=== PATIENT | female | born 2000 | race Caucasian/White ===

== ENCOUNTER 2020-09-19 17:13 | Emergency (ER) | payer SELFPAY ==
[~2020-09-19] VITALS: Ht 142.2 cm; Wt 40.2 kg
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
[2020-09-19 17:53] LABS: HEMATOCRIT 35 % (35-52); HEMOGLOBIN 12.3 G/DL (11.5-16.0); MEAN CORPUSCULAR HEMOGLOBIN 32 PG (25-34); MEAN CORPUSCULAR HGB CONC 35 G/DL (32-36); MEAN CORPUSCULAR VOLUME 91 FL (80-99); PLATELET COUNT 276 10^3/uL (130-400); WHITE BLOOD COUNT 6.4 10^3/uL (4.3-11.0)
[2020-09-19 17:54] LABS: BASOPHILS # (AUTO) 0.1 10^3/uL (0.0-0.1); BASOPHILS % (AUTO) 1 % (0-10); EOSINOPHILS # (AUTO) 0.2 10^3/uL (0.0-0.3); EOSINOPHILS % (AUTO) 3 % (0-10); LYMPHOCYTES # (AUTO) 1.7 X 10^3 (1.0-4.0); LYMPHOCYTES % (AUTO) 26 % (12-44); MONOCYTES # (AUTO) 0.4 X 10^3 (0.0-1.0); MONOCYTES % (AUTO) 7 % (0-12); NEUTROPHILS # (AUTO) 4.1 X 10^3 (1.8-7.8); NEUTROPHILS % (AUTO) 64 % (42-75)
[2020-09-19 18:18] LABS: HCG,QUALITATIVE URINE NEGATIVE (NEGATIVE)
[2020-09-19 18:18] LABS: BUN/CREATININE RATIO 18; CALCIUM 8.8 MG/DL (8.5-10.1); CARBON DIOXIDE 23 MMOL/L (21-32); CHLORIDE 110 MMOL/L (98-107); CREATININE SERUM 0.62 MG/DL (0.60-1.30); GFR ESTIMATED > 60; GLUCOSE 85 MG/DL (70-105); POTASSIUM 3.9 MMOL/L (3.6-5.0); SODIUM 142 MMOL/L (135-145)
[2020-09-19 18:19] LABS: ACETAMINOPHEN < 10 UG/ML (10-30); ALANINE AMINOTRANSFERASE 7 U/L (0-55); ALBUMIN 4.2 GM/DL (3.2-4.5); ALKALINE PHOSPHATASE 64 U/L (40-136); BILIRUBIN,TOTAL 0.4 MG/DL (0.1-1.0); SALICYLATE < 0.3 MG/DL (5.0-20.0); TOTAL PROTEIN 6.5 GM/DL (6.4-8.2)
[2020-09-19 18:24] LABS: BILIRUBIN,URINE NEGATIVE (NEGATIVE); CLARITY,URINE SLT CLOUDY; COLOR,URINE YELLOW; GLUCOSE, URINE (UA) NEGATIVE (NEGATIVE); KETONES,URINE NEGATIVE (NEGATIVE); LEUKOCYTE ESTERASE ,URINE 2+ (NEGATIVE); NITRITE,URINE NEGATIVE (NEGATIVE); PH,URINE 8.5 (5-9); PROTEIN,URINE 1+ (NEGATIVE)
[2020-09-19 18:25] LABS: BACTERIA,URINE TRACE /HPF; RBC,URINE 0-2 /HPF
[2020-09-19 18:28] LABS: AMPHETAMINE SCREEN, URINE NEGATIVE (NEGATIVE); BARBITURATE SCREEN URINE NEGATIVE (NEGATIVE); BENZODIAZEPINES SCREEN URINE NEGATIVE (NEGATIVE); CANNABINOID SCREEN, URINE NEGATIVE (NEGATIVE); COCAINE SCREEN URINE NEGATIVE (NEGATIVE); METHADONE STAT NEGATIVE (NEGATIVE); METHAMPHETAMINE SCREEN URINE S NEGATIVE (NEGATIVE); OPIATE SCREEN URINE NEGATIVE (NEGATIVE); OXYCODONE STAT NEGATIVE (NEGATIVE); PROPOXYPHENE STAT NEGATIVE (NEGATIVE); TRICYCLIC ANTIDEPRESSANTS SCRE NEGATIVE (NEGATIVE)
[2020-09-19] MEDS ORDERED: Paroxetine (19:03)
[2020-09-20 08:30] VITALS: BP 116/72
== END 2020-09-20 08:45 | disposition short-term general hospital (02) ==
LOC: ER FS 17:16
DX: R45.851 Suicidal ideations (principal); Z20.822 Contact with and (suspected) exposure to COVID-19
CPT/HCPCS: 36415; 80053; 80306; 81000; 84703; 85025; 87088; 93005; 93041; 99284; G0480 ×3; U0002; 80320; 80329; 87635

== ENCOUNTER 2020-10-03 14:17 | Emergency (ER) | payer SELFPAY ==
[~2020-10-03] VITALS: Ht 145 cm; Wt 42.0 kg
[~2020-10-03 14:17] MED LIST: Paroxetine
[2020-10-03] MEDS ORDERED: NS IV 1000 ML 1,000 ML IV STA (14:43)
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
[2020-10-03 14:58] LABS: WHITE BLOOD COUNT 8.1 10^3/uL (4.3-11.0)
[2020-10-03 14:59] LABS: BASOPHILS % (AUTO) 0 % (0-10); EOSINOPHILS # (AUTO) 0.2 10^3/uL (0.0-0.3); EOSINOPHILS % (AUTO) 3 % (0-10); HEMATOCRIT 35 % (35-52); HEMOGLOBIN 12.4 G/DL (11.5-16.0); LYMPHOCYTES # (AUTO) 1.3 X 10^3 (1.0-4.0); LYMPHOCYTES % (AUTO) 16 % (12-44); MEAN CORPUSCULAR HEMOGLOBIN 32 PG (25-34); MEAN CORPUSCULAR HGB CONC 35 G/DL (32-36); MEAN CORPUSCULAR VOLUME 92 FL (80-99); MEAN PLATELET VOLUME 10.1 FL (7.4-10.4); MONOCYTES # (AUTO) 0.7 X 10^3 (0.0-1.0); MONOCYTES % (AUTO) 9 % (0-12); NEUTROPHILS # (AUTO) 5.8 X 10^3 (1.8-7.8); NEUTROPHILS % (AUTO) 72 % (42-75); PLATELET COUNT 227 10^3/uL (130-400)
[2020-10-03 15:05] LABS: BILIRUBIN,URINE NEGATIVE (NEGATIVE); CLARITY,URINE CLEAR; COLOR,URINE YELLOW; GLUCOSE, URINE (UA) NEGATIVE (NEGATIVE); KETONES,URINE NEGATIVE (NEGATIVE); LEUKOCYTE ESTERASE ,URINE TRACE (NEGATIVE); NITRITE,URINE NEGATIVE (NEGATIVE); PROTEIN,URINE 1+ (NEGATIVE)
[2020-10-03 15:06] LABS: BACTERIA,URINE FEW /HPF; RBC,URINE 0-2 /HPF
[2020-10-03 15:08] LABS: AMPHETAMINE SCREEN, URINE NEGATIVE (NEGATIVE); BARBITURATE SCREEN URINE NEGATIVE (NEGATIVE); BENZODIAZEPINES SCREEN URINE NEGATIVE (NEGATIVE); CANNABINOID SCREEN, URINE NEGATIVE (NEGATIVE); COCAINE SCREEN URINE NEGATIVE (NEGATIVE); METHADONE STAT NEGATIVE (NEGATIVE); METHAMPHETAMINE SCREEN URINE S NEGATIVE (NEGATIVE); OPIATE SCREEN URINE NEGATIVE (NEGATIVE); OXYCODONE STAT NEGATIVE (NEGATIVE); PROPOXYPHENE STAT NEGATIVE (NEGATIVE); TRICYCLIC ANTIDEPRESSANTS SCRE NEGATIVE (NEGATIVE)
[2020-10-03 15:17] LABS: ACETAMINOPHEN < 10 UG/ML (10-30); ALANINE AMINOTRANSFERASE 6 U/L (0-55); ALBUMIN 3.7 GM/DL (3.2-4.5); ALKALINE PHOSPHATASE 64 U/L (40-136); BILIRUBIN,TOTAL 0.2 MG/DL (0.1-1.0); BUN/CREATININE RATIO 17; CALCIUM 8.9 MG/DL (8.5-10.1); CARBON DIOXIDE 23 MMOL/L (21-32); CHLORIDE 108 MMOL/L (98-107); CREATININE SERUM 0.69 MG/DL (0.60-1.30); GFR ESTIMATED > 60; GLUCOSE 88 MG/DL (70-105); POTASSIUM 3.9 MMOL/L (3.6-5.0); SALICYLATE < 0.3 MG/DL (5.0-20.0); SODIUM 140 MMOL/L (135-145); TOTAL PROTEIN 6.3 GM/DL (6.4-8.2)
[2020-10-03 17:22] VITALS: BP 124/62
== END 2020-10-03 17:16 | disposition home or self-care (01) ==
LOC: EDUNIT# 14:17 → ER FS 14:19
DX: F41.9 Anxiety disorder, unspecified (principal); T43.222A Poisoning by selective serotonin reuptake inhibitors, intentional self-harm, initial encounter
CPT/HCPCS: 36415; 80053; 80306; 81000; 84703; 85025; 93005; 93041; 99284; G0480 ×3; 80320; 80329

== ENCOUNTER 2021-02-18 15:34 | Emergency (ER) | payer OTHER ==
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
--- OUTSIDE RECORDS SUMMARY | 2021-04-14 18:54 | XMS REPORT | Encounter Summary ---
Author Author [facility] Organization [facility] Address Unknown Phone Unavailable Care Team Providers Care Director Card Name Role Phone Unassigned, None PCP Unavailable Allyson Canales [id number] Encounter Details Care Team Description Date Type Department Allyson Canales 03/19/2021 Patient [facility] Care Outreach Management [address] [place] [address] Social History Date Tobacco Use Types Packs/Day [...] 02/19/2021 relatives? How often do you attend zoroastrian or scientologist Never 02/19/2021 services? Do you belong to any clubs or organizations such No 02/19/2021 as zoroastrian groups, unions, fraternal or athletic groups, or [...] file Not on file Not on file Date Recorded COVID-19 Exposure Response 02/18/2021 11:39 PM CDT In the last month, have you been in contact with No / Unsure someone who was confirmed or suspected to have Coronavirus / COVID-19? documented as of this encounter Miscellaneous Notes * Progress Notes - Allyson Canales - 03/19/2021 9:13 AM CDT Patient: Laura Carter : 2000 PCP: Unassigned, None Today's Date: 03/19/2021 Hernandez Issue: Follow up Intervention: SW has not had contact with Pt since 02/21/21. SW sending closing letter Plan: SW will be available if needed Allyson Canales LMSW 03/19/2021 9:13 AM documented in this encounter Plan of Treatment Not on filedocumented as of this encounter Visit Diagnoses Not on filedocumented in this encounter Additional Health Concerns Noted Time Assessment 02/19/2021 8:20 AM CDT A fall risk assessment has been complet ed for the patient documented as of this encounter Care Teams Start Date End Date Director Card Relationship Specialty 02/19/21 Unassigned, None PCP - General [place] 02/19/21 03/28/21 Allyson Canales Cellular Equipment Repairer Social Work documented as of this encounter
--- OUTSIDE RECORDS SUMMARY | 2021-04-14 18:54 | XMS REPORT | Encounter Summary ---
Author Author [facility] Organization [facility] Address Unknown Phone Unavailable Care Team Providers Care Hydro Mechanic Name Role Phone PCP Unavailable Encounter Details Care Team Description Date Type Department 02/18/2021 Travel Social History Date Tobacco Use Types Packs/Day Years Used Never Assessed Alcohol Habits Answer Date Recorded How often [...] 02/19/2021 relatives? How often do you attend hoahaoism or islam Never 02/19/2021 services? Do you belong to any clubs or organizations such No 02/19/2021 as hoahaoism groups, unions, fraternal or athletic groups, or [...] gettin g things needed for daily living? Sex Assigned at Date Recorded Not on file Industry Job Start Date Occupation Not on file Not on file Not on file Date Recorded COVID-19 Exposure Response 02/18/2021 11:39 PM CDT In the last month, have you been in contact with No / Unsure someone who was confirmed or suspected to have Coronavirus / COVID-19? documented as of this encounter Plan of Treatment Not on filedocumented as of this encounter Visit Diagnoses Not on filedocumented in this encounter
--- OUTSIDE RECORDS SUMMARY | 2021-04-14 18:54 | XMS REPORT | Encounter Summary ---
Author Author [facility] Organization [facility] Address Unknown Phone Unavailable Care Team Providers Care Health Care Sanitary Technician Name Role Phone Unassigned, None PCP Unavailable Allyson Canales [phone] Encounter Details Care Team Description Date Type Department Allyson Canales 03/11/2021 Patient [facility] Care Outreach Management [address] [place] [address] Social History Date Tobacco Use Types Packs/Day [...] 02/19/2021 relatives? How often do you attend sikhism or restoration Never 02/19/2021 services? Do you belong to any clubs or organizations such No 02/19/2021 as sikhism groups, unions, fraternal or athletic groups, or [...] encounter Care Teams Start Date End Date Health Care Sanitary Technician Relationship Specialty 02/19/21 Unassigned, None PCP - General [place] 02/19/21 03/28/21 Allyson Canales Outpatient Coder Social Work documented as of this encounter
--- OUTSIDE RECORDS SUMMARY | 2021-04-14 18:54 | XMS REPORT | Encounter Summary ---
Author Author [facility] Organization [facility] Address Unknown Phone Unavailable Care Team Providers Care Cyber Threat Analyst Name Role Phone Unassigned, None PCP Unavailable Allyson Canales [phone] Encounter Details Care Team Description Date Type Department Allyson Canales 02/21/2021 Patient [facility] Care Outreach Management [address] [place] [address] Social History Date Tobacco Use Types Packs/Day [...] 02/19/2021 relatives? How often do you attend anabaptist or mandaeism Never 02/19/2021 services? Do you belong to any clubs or organizations such No 02/19/2021 as anabaptist groups, unions, fraternal or athletic groups, or [...] * Progress Notes - Allyson Canales - 02/21/2021 1:05 PM CDT Patient: Laura Carter : 2000 PCP: Unassigned, None Today's Date: 02/21/2021 Referral Received From: IP Discharge Hernandez Issue: Follow up Intervention: SW contacted Pt to see how she's been doing since discharge. Pt s tates she is doing "well" and does not have any SI/HI. SW reminded Pt of her me d check and therapy appointments at [facility] on 02/26/21 and 02/22/21, respectively. Pt is living with her grandmother, so she is not in need of any services. SW a sked if she wanted any help finding a PCP and Pt stated she did not. Pt stated her meds are working a she is doing well. Plan: SW will follow up with Pt and be available as needed Allyson Canales LMSW 02/21/2021 1:05 PM documented in this encounter Plan of Treatment Not on filedocumented as of this encounter Visit Diagnoses Not on filedocumented in this encounter Additional Health Concerns Noted Time Assessment 02/19/2021 8:20 AM CDT A fall risk assessment has been complet ed for the patient documented as of this encounter Care Teams Start Date End Date Cyber Threat Analyst Relationship Specialty 02/19/21 Unassigned, None PCP - General [place] 02/19/21 03/28/21 Allyson Canales Mobile Tester Social Work documented as of this encounter
--- OUTSIDE RECORDS SUMMARY | 2021-04-14 18:54 | XMS REPORT | Encounter Summary ---
Author Author [facility] Organization [facility] Address Unknown Phone Unavailable Care Team Providers Care Conference Specialist Name Role Phone Unassigned, None PCP Unavailable Allyson Canales [id number] Encounter Details Care Team Description Date Type Department Allyson Canales 02/28/2021 Patient [facility] Care Outreach Management [address] [place] [address] Social History Date Tobacco Use Types Packs/Day [...] 02/19/2021 relatives? How often do you attend scientologist or baptist Never 02/19/2021 services? Do you belong to any clubs or organizations such No 02/19/2021 as scientologist groups, unions, fraternal or athletic groups, or [...] encounter Care Teams Start Date End Date Conference Specialist Relationship Specialty 02/19/21 Unassigned, None PCP - General [place] 02/19/21 03/28/21 Allyson Canales Lead Programmer Analyst Social Work documented as of this encounter
--- OUTSIDE RECORDS SUMMARY | 2021-04-14 18:54 | XMS REPORT | Clinical Summary ---
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 Encounters Care Team Description Date Type Specialty Ally, Allyson L 03/29/2021 Patient Care Management Outreach Sponholmesfin, Allyson L 03/19/2021 Patient Care Management Outreach Sponholtz, Allyson L 03/11/2021 Patient Care Management Outreach Sponholtz, Allyson L 02/28/2021 Patient Care Management Outreach Sponholtz, Allyson L 02/21/2021 Patient Care Management Outreach 02/18/2021 Travel from Last 3 Months Immunizations Name Administration Dates Next Due DTaP 03/20/2005, 12/02/2002, , 1999, 1999 Hep B,adolescent or 05/28/2000, 1999, 10/1999 pediatric Hepatitis B, NOS 05/28/2000, 1999, 10/1999 HiB PRP-OMP (PedvaxHIB) 12/02/2002, 05/28/2000, , 1999 IPV 03/20/2005, 09/22/2000, , 1999 MMR 03/20/2005, 09/22/2000 Social History Date Tobacco Use Types Packs/Day [...] 02/19/2021 relatives? How often do you attend adventism or tenriism Never 02/19/2021 services? Do you belong to any clubs or organizations such No 02/19/2021 as adventism groups, unions, fraternal or athletic groups, or [...] file Not on file Not on file Last Filed Vital Signs Reading Time Taken Comments Vital Sign 127/74 02/19/2021 8:26 AM CDT Blood Pressure 92 02/19/2021 8:26 AM CDT Pulse 36.6 C (97.8 F) 02/19/2021 8:25 AM CDT Temperature 16 02/19/2021 8:25 AM CDT Respiratory Rate 100% 02/19/2021 8:25 AM CDT Oxygen Saturation - - Inhaled Oxygen Concentration 43.1 kg (95 lb) 02/19/2021 4:17 AM CDT Weight 144.8 cm (4' 9") 02/19/2021 4:17 AM CDT Height 20.56 02/19/2021 4:17 AM CDT Body Mass Index Plan of Treatment Health Maintenance Due Date Last Done Comments Varicella Vaccines (1 of 04/17/2005 2 - 2-dose childhood series) DTaP,Tdap,and Td Vaccines 2010 03/20/2005, (6 - Tdap) 12/02/2002, 05/28/2000, Additional history exists HPV Vaccines (1 - 2-dose 2010 series) COVID-19 Vaccine (1) 2011 MenB Vaccine (Bexsero) (1 2015 of 2) Hepatitis C Screening 2017 Cervical Cancer Screening 2020 Influenza Vaccine (#1) 2021 Pneumo-Vaccine: 65+Yrs (1 2064 of 1 - PPSV23) HIB Vaccines Completed 12/02/2002, 05/28/2000, 1999, Additional history exists IPV Vaccines Completed 03/20/2005, 09/22/2000, 1999, Additional history exists MMR Vaccines-Adult Completed 03/20/2005, 09/22/2000 Meningococcal Vaccine Aged Out No longer eligib le based on patient's age to complete this topic Pneumo-Vaccine: Peds (0-5 Aged Out No longer el igible based on patient's age to Yrs) & At-Risk Patients complete this topic (6-64 Yrs) Rotavirus Vaccines Aged Out No longer eligible based on patient's age to complete this topic Results Not on filefrom Last 3 Months Advance Directives For more information, please contact: [phone] Patient Fiber Artist Explanation Type Date Recorded Advance Directives and Living Will Power of Foundry Molder Date Inactivated Comments Code Status Date Activated Full Code 02/19/2021 1:17 PM 02/19/2021 1:17 PM Full Code 02/19/2021 5:30 AM Care Teams Start Date End Date Vascular Ultrasound Technologist Relationship Specialty 02/19/21 Unassigned, None PCP - General [place]
== END 2021-03-21 15:48 | disposition left against medical advice (07) ==
LOC: EDUNIT# 15:34 → ER FS 15:35
DX: F40.10 Social phobia, unspecified (principal)

== ENCOUNTER 2021-02-18 19:07 | Emergency (ER) | payer SELFPAY ==
[~2021-02-18] VITALS: Ht 146 cm; Wt 42.3 kg
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
[2021-02-18 19:44] LABS: AMPHETAMINE SCREEN, URINE NEGATIVE (NEGATIVE); BARBITURATE SCREEN URINE NEGATIVE (NEGATIVE); BENZODIAZEPINES SCREEN URINE NEGATIVE (NEGATIVE); CANNABINOID SCREEN, URINE NEGATIVE (NEGATIVE); COCAINE SCREEN URINE NEGATIVE (NEGATIVE); HCG,QUALITATIVE URINE NEGATIVE (NEGATIVE); METHADONE STAT NEGATIVE (NEGATIVE); METHAMPHETAMINE SCREEN URINE S NEGATIVE (NEGATIVE); OPIATE SCREEN URINE NEGATIVE (NEGATIVE); OXYCODONE STAT NEGATIVE (NEGATIVE); PROPOXYPHENE STAT NEGATIVE (NEGATIVE); TRICYCLIC ANTIDEPRESSANTS SCRE NEGATIVE (NEGATIVE)
[2021-02-18 19:45] LABS: BACTERIA,URINE NEGATIVE /HPF; BILIRUBIN,URINE NEGATIVE (NEGATIVE); CLARITY,URINE CLEAR; COLOR,URINE YELLOW; GLUCOSE, URINE (UA) NEGATIVE (NEGATIVE); KETONES,URINE NEGATIVE (NEGATIVE); LEUKOCYTE ESTERASE ,URINE 1+ (NEGATIVE); NITRITE,URINE NEGATIVE (NEGATIVE); PROTEIN,URINE 1+ (NEGATIVE)
[2021-02-18 19:46] LABS: BASOPHILS % (AUTO) 1 % (0-10); EOSINOPHILS % (AUTO) 3 % (0-10); HEMATOCRIT 38 % (35-52); HEMOGLOBIN 13.2 g/dL (11.5-16.0); LYMPHOCYTES # (AUTO) 2.6 X 10^3 (1.0-4.0); LYMPHOCYTES % (AUTO) 24 % (12-44); MEAN CORPUSCULAR HEMOGLOBIN 31 pg (25-34); MEAN CORPUSCULAR HGB CONC 35 g/dL (32-36); MEAN CORPUSCULAR VOLUME 91 fL (80-99); MEAN PLATELET VOLUME 10.2 fL (9.0-12.2); MONOCYTES % (AUTO) 6 % (0-12); NEUTROPHILS # (AUTO) 7.2 X 10^3 (1.8-7.8); NEUTROPHILS % (AUTO) 67 % (42-75); PLATELET COUNT 287 10^3/uL (130-400); WHITE BLOOD COUNT 10.8 10^3/uL (4.3-11.0)
[2021-02-18 19:47] LABS: BASOPHILS # (AUTO) 0.1 10^3/uL (0.0-0.1); EOSINOPHILS # (AUTO) 0.3 10^3/uL (0.0-0.3); MONOCYTES # (AUTO) 0.6 X 10^3 (0.0-1.0)
[2021-02-18 20:00] LABS: ALANINE AMINOTRANSFERASE < 5 U/L (0-55); ALKALINE PHOSPHATASE 70 U/L (40-136); BILIRUBIN,TOTAL 0.5 MG/DL (0.1-1.0); BUN/CREATININE RATIO 17; CALCIUM 9.3 MG/DL (8.5-10.1); CARBON DIOXIDE 23 MMOL/L (21-32); CHLORIDE 104 MMOL/L (98-107); CREATININE SERUM 0.69 MG/DL (0.60-1.30); GFR ESTIMATED 107; GLUCOSE 88 MG/DL (70-105); SODIUM 137 MMOL/L (135-145); TOTAL PROTEIN 7.2 GM/DL (6.4-8.2)
[2021-02-18] MEDS ORDERED: OLANZapine 5 MG ODT (ZyPREXA ZYDIS) PO ONE (20:00)
[2021-02-18 20:01] LABS: ACETAMINOPHEN < 10 UG/ML (10-30); ALBUMIN 4.4 GM/DL (3.2-4.5); SALICYLATE < 0.3 MG/DL (5.0-20.0)
[2021-02-19 00:37] VITALS: BP 112/62
== END 2021-02-19 00:37 ==
LOC: EDUNIT# 19:07 → ER FS 19:08
DX: R45.851 Suicidal ideations (principal); F32.9 Major depressive disorder, single episode, unspecified; Z20.822 Contact with and (suspected) exposure to COVID-19
CPT/HCPCS: 36415; 80053; 80306; 81000; 84703; 85025; 87636; 99284; G0480 ×3; 80320; 80329